=== PATIENT | male | born 1995 | race Caucasian/White ===

== ENCOUNTER 2016-11-11 11:18 | Emergency (ER) | payer SELFPAY ==
[~2016-11-11] VITALS: Wt 81.0 kg
--- NOTE | 2016-11-11 12:06 | ERD ---
ER Documentation Chief Complaint Date/Time DATE: 11/11/16 Chief Complaint Palpitations HPI The patient is a 21-year-old male who presents to the Emergency Department with complaint of palpitations. The patient reports that approximately one month ago he smoked marijuana for the first time. Shortly after smoking the marijuana , he began to feel palpitations, which self-resolved. Since that incident, he has noted that any time he drinks any form of caffeinated beverage he develops palpitations. On Saturday, two days ago, he received some unfortunate news from [place], where his family is, and once again began to palpitations, and felt anxious as well. He followed up at an outpatient clinic today, who recommended that he present to the ED for EKG and testing. The patient denies any personal or familial cardiac history. Denies family history of sudden cardiac . Denies current chest pain, palpitations, shortness of breath. Denies lower extremity edema, calf swelling or calf tenderness. Denies history of DVT or PE. Denies recent travel. Denies recent surgeries. Denies further illicit drug use. Denies tobacco use. Denies recent URI type symptoms, including cough, rhinorrhea , nasal congestion, sore throat. Denies any contacts with similar symptoms. ROS All systems reviewed and are negative except as per history of present illness. Allergies Allergies: Coded Allergies: naproxen (Verified Allergy, Unknown, periorbital swelling, lip swelling, ) PMhx/Soc History of Surgery: No Anesthesia Reaction: No Hx Neurological Disorder: No Hx Respiratory Disorders: No Hx Cardiac Disorders: No Hx Psychiatric Problems: No Hx Miscellaneous Medical Probl: No Hx Substance Use: Yes (marijuana use x 1 time 1 month ago) Physical Exam Vitals Vital Signs Date Time Temp Pulse Resp B/P Pulse Ox O2 Delivery O2 Flow Rate FiO2 11/11/16 11:37 98.0 67 18 120/82 99 Physical Exam GENERAL: Well-developed, well-nourished, male, in no acute distress. HEENT: Head is normocephalic, atraumatic. No scleral pallor or icterus. Pupils equal, round and reactive to light. Extraocular movements intact. Conjunctiva pink. Nares are patent bilaterally. Bilaterally tympanic membranes are clear with no evidence of erythema, effusion or dulling of the light reflex. Moist mucous membranes. No tonsillar exudates or erythema of the oropharynx. NECK: Supple. No masses, no tenderness, no lymphadenopathy. Trachea midline. No nuchal rigidity. No meningismus. RESPIRATORY: Lungs are clear to auscultation bilaterally. No rales, rhonchi or wheezing. Equal breath sounds. Normal expiratory effort. CARDIOVASCULAR: Regular rate and rhythm. S1 and S2 normal. No murmurs, rubs, or gallops. Distal pulses are palpable, 2+ bilaterally. Capillary refill is less than 2 seconds. GASTROINTESTINAL: Abdomen is soft, non-tender, and non-distended. No guarding, no rebound tenderness. Normal bowel sounds. No abdominal bruits. No gross peritonitis. Negative Rovsings. Negative [employer]. No tenderness at McBurneys point. FLANK: No CVA tenderness. BACK: No midline tenderness. EXTREMITIES: No clubbing, cyanosis, or edema. Normal skin perfusion. Joints non- tender, no joint effusion. Full range of motion of both the upper and lower extremities bilaterally. Muscle tone is normal. No focal swelling or erythema. NEUROLOGIC: The patient is alert, awake, and oriented x 3. No focal neurologic deficits. Cranial nerves are grossly intact. Gait is observed and normal. There is no ataxia. Motor normal in all extremities. Sensation grossly intact. INTEGUMENT: Skin is intact. Warm and dry. No rashes, no petechiae present. Normal turgor. PSYCHIATRIC: Normal mood and mentation. Result Diagram: 11/11/16 1200 11/11/16 1200 Results 24 hrs Laboratory Tests Test 11/11/16 12:00 Activated Partial Thromboplast Time 28.6Sec Anion Gap 17 Basophils # 0.010^3/ul Basophils % 0.2% Blood Urea Nitrogen 13mg/dl Calcium Level 9.8mg/dl Carbon Dioxide Level 27mmol/L Chloride Level 103mmol/L Creatinine 0.84mg/dl Eosinophils # 0.010^3/ul Eosinophils % 0.0% Glucose Level 103mg/dl Hematocrit 45.1% Hemoglobin 15.1g/dl INR International Normalized Ratio 0.93 Lymphocytes # 1.310^3/ul Lymphocytes % 13.4% Mean Corpuscular Hemoglobin 31.3pg Mean Corpuscular Hemoglobin Concent 33.5g/dl Mean Corpuscular Volume 93.6fl Mean Platelet Volume 10.1fl Monocytes # 0.410^3/ul Monocytes % 3.8% Neutrophils # 7.810^3/ul Neutrophils % 82.4% Nucleated Red Blood Cells # 0.010^3/ul Nucleated Red Blood Cells % 0.0/100WBC Platelet Count 16317^3/UL Potassium Level 3.9mmol/L Prothrombin Time 12.5Sec Prothrombin Time Ratio 1.0 Red Blood Count 4.8210^6/ul Red Cell Distribution Width 11.8% Sodium Level 143mmol/L Thyroid Stimulating Hormone (TSH) 0.518MIU/L Troponin I < 0.012ng/ml Urine Amphetamines Screen Negative Urine Barbiturates Negative Urine Benzodiazepines Screen Negative Urine Cannabinoids Negative Urine Cocaine Screen Negative Urine Opiates Screen Negative White Blood Count 9.410^3/ul Procedures/MDM DIAGNOSTIC TESTS AND INTERPRETATION: PROCEDURE: XR Chest. CLINICAL INDICATION: 21-year-old male with chest pain. TECHNIQUE: Single frontal view of the chest was obtained COMPARISON: No. FINDINGS:The soft tissues are normal. The bony elements are normal. The cardiomediastinal silhouette, pulmonary vasculature and hilar structures are normal. There is a left-sided aorta. The lungs are clear. The costophrenic angles are normal. IMPRESSION: Normal chest x-ray. Physician Vini Date Time Electronically viewed and signed by Phillip Hernandez Physician on 11/11/2016 13:07 EKG: Reviewed and interpreted by: Dr. Mckeon EKG Interpretation: Normal sinus rhythm, no ectopy, no ST elevations. MEDICAL DECISION MAKING: This is a 21-year-old male presenting to the Emergency Department with complaint of palpitations. The patient had his first episode of palpitations after smoking marijuana for the first time. Since, he has been experiencing intermittent episodes of self-resolving palpitations after drinking caffeinated beverages. Saturday he received some unfortunate news regarding a family member, and once again developed palpitations. The patient had no significant abnormalities on physical examination, and vital signs were stable. The patient denies active illicit drug use, other than the one-time use of marijuana. Chest x-ray revealed no significant abnormalities, no widened mediastinum, no masses. EKG indicated no evidence of atrial fibrillation, no tachycardia, no ectopy, no arrhythmias, no WPW, no HCM, no brugada. Upon laboratory assessment, the patients CBC was stable. No leukocytosis to suggest infectious etiology. Hemoglobin and hematocrit are stable, no evidence of significant anemia. No electrolyte abnormalities are noted. Troponin was not elevated. TSH is within normal limits, not suggesting any thyroid etiologies. Urine drug screen returned positive for cannabinoids, which was to be expected, given the patient's history. The clinical presentation does not suggest an acute coronary syndrome, acute pulmonary embolism or any other emergent medical condition at this time. After rest, the patient reports no new complaints, and resolved symptoms. Upon my review and interpretation of the patient's presentation, clinical data, and overall ER course, I believe the patient's symptoms are most consistent with palpitations, possibly secondary to anxiety reaction. At this time, the patient is in stable condition and therefore can be discharged home with strict return precautions for signs of deteriorating or worsening condition. The patient is advised to follow up with his primary care provider within 2-3 days for re-evaluation and further management, or return to the ER sooner for any new or worsening symptoms. I shared all laboratory and diagnostic imaging studies with the patient at length and in great detail, and the patient verbally understand and agree with the plan for further observation and care as an outpatient. At the time of discharge, all questions were answered. Departure Diagnosis: Primary Impression: Palpitations Condition: Stable Patient Instructions: Anxiety Reaction, Palpitations, Your Body's Response to Anxiety Additional Instructions: Llame al doctor YOSELYN y hallie amanda ESVIN PARA DENTRO DE 2-3 REEDER.Dgale a la secretaria que nosotros le instruimos hacer esta esvin.Avise o llame si hamilton condicin se empeora antes de la esvin. Regresa aqui si peor o no mejor. KWADWO DAWKINS PA-C Nov 11, 2016 12:06
[2016-11-11 12:27] LABS: ADD SCAN DIFF NO
[2016-11-11 12:33] LABS: BASOPHILS % 0.2 % (0.0-2.0); HEMATOCRIT 45.1 % (42.0-52.0); HEMOGLOBIN 15.1 g/dl (14.0-18.0); LYMPHOCYTES # 1.3 10^3/ul (0.8-2.9); LYMPHOCYTES % 13.4 % (15.0-51.0); MEAN CORPUSCULAR HEMOGLOBIN 31.3 pg (29.0-33.0); MEAN CORPUSCULAR HGB CONC 33.5 g/dl (32.0-37.0); MEAN CORPUSCULAR VOLUME 93.6 fl (82.0-101.0); MEAN PLATELET VOLUME 10.1 fl (7.4-10.4); MONOCYTE # 0.4 10^3/ul (0.3-0.9); MONOCYTES % 3.8 % (0.0-11.0); NEUTROPHIL # 7.8 10^3/ul (1.6-7.5); NEUTROPHILS % 82.4 % (39.0-77.0); PLATELET COUNT 267 10^3/UL (140-415); RED BLOOD COUNT 4.82 10^6/ul (4.70-6.10); RED CELL DISTRIBUTION WIDTH 11.8 % (11.5-14.5); WHITE BLOOD COUNT 9.4 10^3/ul (4.8-10.8)
[2016-11-11 12:38] LABS: CHLORIDE 103 mmol/L (97-110); POTASSIUM 3.9 mmol/L (3.5-5.1); SODIUM 143 mmol/L (135-144)
[2016-11-11 12:41] LABS: ANION GAP 17 (8-16); BLOOD UREA NITROGEN 13 mg/dl (7-20); CARBON DIOXIDE 27 mmol/L (21-31); CREATININE 0.84 mg/dl (0.61-1.24); GLUCOSE 103 mg/dl (70-220)
[2016-11-11 12:42] LABS: CALCIUM 9.8 mg/dl (8.4-10.2)
[2016-11-11 12:43] LABS: INR 0.93; PROTIME 12.5 Sec (12.2-14.2)
[2016-11-11 12:44] LABS: PARTIAL THROMBOPLASTIN TIME 28.6 Sec (25.0-35.0)
--- NOTE | 2016-11-11 13:07 | RADRPT ---
PROCEDURE: XR Chest. CLINICAL INDICATION: 21-year-old male with chest pain. TECHNIQUE: Single frontal view of the chest was obtained COMPARISON: No. FINDINGS: The soft tissues are normal. The bony elements are normal. The cardiomediastinal silhouette, pulmo nary vasculature and hilar structures are normal. There is a left-sided aorta. The lungs are clear. The costophrenic angles are normal. IMPRESSION: 1. Normal chest x-ray. RPTAT:AAJJ Physician Vini Date Time Electronically viewed and signed by Phillip Hernandez Physician on 11/11/2016 13:07 DAVID/
[2016-11-11 13:12] LABS: THYROID STIMULATING HORMONE 0.518 MIU/L (0.465-4.680)
[2016-11-11 13:30] LABS: TROPONIN-I < 0.012 ng/ml (0.00-0.12)
[2016-11-11 13:45] LABS: BARBITURATES Negative (NEGATIVE)
[2016-11-11 13:46] LABS: BENZODIAZEPINES Negative (NEGATIVE)
[2016-11-11 13:47] LABS: CANNABINOIDS Negative (NEGATIVE)
[2016-11-11 13:48] LABS: COCAINE Negative (NEGATIVE)
[2016-11-11 13:49] LABS: OPIATES Negative (NEGATIVE)
== END 2016-11-11 14:26 | disposition home or self-care (01) ==
LOC: FTE 11:18
DX: R00.2 Palpitations (principal); R07.9 Chest pain, unspecified
CPT/HCPCS: 36415; 71010; 80048; 80307; 84443; 84484; 85025; 85610; 85730; 93005